=== PATIENT | male | born 1960 | race Caucasian/White ===

== ENCOUNTER → 2023-02-03 | Emergency (ER) | payer OTHER ==
[~2023-02-03] VITALS: Ht 180.3 cm; Wt 87.1 kg
[~2023-02-03] MED LIST: ESTRADIOL2 MG; FENTANYL1 EAC1 TD; OXYCODONE HCL5 MG PO; PERCOCET 5-3251 EACH PO; SPIRONOLACTONE100 MG NG; TRAZODONE HCL50 MG PO
[2023-02-03 19:29] VITALS: BP 145/96
--- NOTE | 2023-02-03 21:22 | EKG ---
[facility] [address] [facility] [place] [address] Signed Sinus tachycardia Nonspecific ST abnormality Abnormal ECG No previous ECGs available Confirmed by BRICE HAQ MD ([id number]) on 02/03/2023 9:22:42 PM Electronically Signed By: BRICE HAQ MD 02/03/232121 PATIENT NAME: YONATHAN AGUILERA Yuniel Electrocardiogram DATE OF : 64 PHYSICIAN: BRICE HAQ MD REPORT #: [id number] REPORT IS CONFIDENTIAL AND NOT TO BE RELEASED WITHOUT AUTHORIZATION
--- NOTE | 2023-02-05 18:11 | EKG ---
[facility] [address] [facility] [place] [address] Signed Normal sinus rhythm Inferior-posterior infarct , age undetermined Abnormal ECG When compared with ECG of 03-FEB-2023 16:23, Inferior-posterior infarct is now present T wave inversion now evident in Inferior leads Confirmed by BRICE HAQ MD ([id number]) on 02/05/2023 6:11:17 PM Electronically Signed By: BRICE HAQ MD 02/05/231810 PATIENT NAME: YONATHAN AGUILERA Electrocardiogram DATE OF : 64 PHYSICIAN: BRICE HAQ MD REPORT #: [id number] REPORT IS CONFIDENTIAL AND NOT TO BE RELEASED WITHOUT AUTHORIZATION
== END ==
LOC: ED 16:24
DX: C34.90 Malignant neoplasm of unspecified part of unspecified bronchus or lung (principal); C79.89 Secondary malignant neoplasm of other specified sites; R07.9 Chest pain, unspecified; Z79.899 Other long term (current) drug therapy
CPT/HCPCS: 36415; 71045; 80053; 84484; 85025; 93005; 93010; 96374; 96376; 99285-25; J3010

== ENCOUNTER 2023-02-05 16:10 | Emergency (ER) | payer OTHER ==
[~2023-02-05] VITALS: Ht 180.3 cm; Wt 85.3 kg
[~2023-02-05 16:10] MED LIST changes: -FENTANYL1 EAC1 TD; -PERCOCET 5-3251 EACH PO; -SPIRONOLACTONE100 MG NG
[2023-02-05] MEDS ORDERED: SPIRONOLACTONE100 MG NG (16:30)
[2023-02-05] MEDS ORDERED: FENTANYL1 EAC1 TD (19:02)
[2023-02-05] MEDS ORDERED: PERCOCET 5-3251 EACH PO (19:02)
[2023-02-05 19:35] VITALS: BP 125/99
--- NOTE | 2023-02-06 07:30 | EKG ---
[facility] [address] [facility] [place] [address] Signed Sinus rhythm with short NM Increased R/S ratio in V1, consider early transition or posterior infarct Abnormal ECG Confirmed by BRICE HAQ MD ([id number]) on 02/06/2023 7:30:36 AM Electronically Signed By: BRICE HAQ MD 02/06/23 0730 PATIENT NAME: YONATHAN AGUILERA Yuniel Electrocardiogram DATE OF : 64 PHYSICIAN: BRICE HAQ MD REPORT #: [id number] REPORT IS CONFIDENTIAL AND NOT TO BE RELEASED WITHOUT AUTHORIZATION
== END 2023-02-05 19:35 | disposition other institution, planned readmission (95) ==
LOC: ED 16:10
DX: R07.9 Chest pain, unspecified (principal); C34.90 Malignant neoplasm of unspecified part of unspecified bronchus or lung; C79.51 Secondary malignant neoplasm of bone; Z79.899 Other long term (current) drug therapy; Z66 Do not resuscitate
CPT/HCPCS: 36415; 71045; 71260; 80053; 84484; 85025; 93005; 93010; 96376; 99285-25; J3010; Q9967